=== PATIENT | male | born 1960 | race African-American/Black ===

== ENCOUNTER 2017-01-06 21:47 | Emergency (ER) | payer SELFPAY ==
[~2017-01-06] VITALS: Ht 182.9 cm; Wt 85.5 kg
[2017-01-06 22:12] VITALS: BP 127/78; PULSE 59; RESP 16; TEMP 97.8; O2SAT 98
[2017-01-06 22:20] VITALS: BP 127/78; PULSE 59; RESP 16; TEMP 97.8; O2SAT 98
[2017-01-06] MEDS ORDERED: IBUPROFEN 600 MG TAB PO ONE (22:45)
--- NOTE | 2017-01-06 22:47 | PD ---
HPI Chief Complaint: Musculoskeletal Complaint Time Seen by Provider: 22:41 Travel History International Travel<30 days: No Contact w/Intl Traveler<30days: No Traveled to known affect area: No History of Present Illness HPI 56-year-old male here for evaluation of left knee pain. 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 He was able to finish his shift and was able to bear weight after the incident occurred, however he is complaining of persistent left anterior knee pain which is moderate, constant , worse with palpation and movement. He has not taken anything for the pain. He denies any other injuries. [facility] Past Medical History Asthma: Yes Diminished Hearing: No Ulcer: Yes (HX 2000) Tetanus Vaccination: Unknown Influenza Vaccination: Yes Past Surgical History Abdominal Surgery: Yes (ulcers and hernia) Social History Alcohol Use: No Tobacco Use: No Substance Use: No Allergies-Medications (Allergen,Severity, Reaction): Coded Allergies: Penicillin (Verified Allergy, Unknown, Hives, 01/06/17) Sulfa (Verified Allergy, Unknown, Rash, 01/06/17) Review of Systems Except as stated in HPI: all other systems reviewed are Neg Physical Exam Narrative GENERAL: Well-developed, well-nourished, comfortable, no apparent distress. SKIN: Focused skin assessment warm/dry. No lacerations, abrasions, or ecchymosis. CARDIOVASCULAR: Bilateral posterior tibialis pulses are brisk and equal. MUSCULOSKELETAL: Left knee without obvious deformity, with moderate anterior tenderness especially over the patella, with normal range of motion, without obvious edema. NEUROLOGICAL: Awake and alert. No obvious cranial nerve deficits. Motor grossly within normal limits. Normal speech. PSYCHIATRIC: Appropriate mood and affect; insight and judgment normal. Data Data Last Documented VS Vital Signs Date Time Temp Pulse Resp B/P Pulse Ox O2 Delivery O2 Flow Rate FiO2 01/06/17 22:20 97.8 59 16 127/78 98 Orders Knee, Complete (4vws) (01/06/17 ) Ibuprofen (Motrin) (01/06/17 22:45) MDM Medical Decision Making Medical Screen Exam Complete: Yes Emergency Medical Condition: Yes Differential Diagnosis Left knee contusion versus fracture/patellar fracture Narrative Course Left knee x-ray: No acute left knee abnormality is identified. Patient was made aware of x-ray findings. He does have tenderness along his left anterior knee, however there is no obvious deformity on exam. He has normal range of motion in his left knee. He likely contused his left knee. He is stable for discharge home with outpatient follow-up with a primary care physician this week. I will also given the name of the orthopedist production line with whom to follow up with should his pain not resolve after 1-2 weeks. He was informed on when to return to the emergency department. He verbalizes understanding and agreement with plan. Diagnosis Primary Impression: Contusion of left knee Qualified Code: S80.02XA - Contusion of left knee, initial encounter Referrals: Marquise Denny MD 1 week Primary Care Physician 3 days Additional Instructions: Follow-up with a primary care physician this week. Follow-up with orthopedic surgeon Dr. Denny orthopedic surgeon of your choice in the next 1-2 weeks. Return to the emergency department for worsening symptoms or any other concerns. Scripts Naproxen (Naprosyn)500 Mg Gnu660 Mg PO BID 14 Days Ref 0 Prov:Yovany Zamora MD 01/06/17 Disposition: 01 DISCHARGE HOME Condition: Stable Yovany Zamora MD Jan 06, 2017 22:47
--- NOTE | 2017-01-06 23:16 | RADRPT ---
EXAM DATE/TIME: 01/06/2017 22:57 [facility] COMPARISON: No previous studies available for comparison. INDICATIONS : Left knee pain. 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 SURGICAL HISTORY : None. ENCOUNTER: Initial ACUITY: 1 day PAIN SCORE: 4/10 LOCATION: Left knee. FINDINGS: Four views of the left knee demonstrate no fracture or dislocation. No joint effusion is present. The re is no significant arthropathy and mineralization is within normal limits. No soft tissue abnormali ty or radiopaque foreign body is identified. CONCLUSION: No acute left knee abnormality is identified. Dom Murillo MD on January 06, 2017 at 23:13 Board Certified Radiologist. This report was verified electronically.
[2017-01-06] MEDS ORDERED: NAPR500 PO (23:29)
== END 2017-01-06 23:49 | disposition home or self-care (01) ==
LOC: PHEFT 21:47
DX: S80.02XA Contusion of left knee, initial encounter (principal); W22.8XXA Striking against or struck by other objects, initial encounter; Y92.511 Restaurant or cafe as the place of occurrence of the external cause; Y99.0 Civilian activity done for income or pay
CPT/HCPCS: 73564; 99283

== ENCOUNTER → 2017-10-20 | Outpatient (CLI) | DX: R53.0 Neoplastic (malignant) related fatigue (principal) ==